=== PATIENT | female | born 1960 | race Caucasian/White ===

== ENCOUNTER 2022-12-18 13:34 | Day surgery (SDC) | payer MEDICARE, SELFPAY ==
--- NOTE | 2022-12-18 | IMM_PTH ---
PATIENT: RG LAWRENCE LOC: EN U#:[id number] AGE/SX: 62/F ROOM: RE12/18/[address]: Dr. Eron Arboleda DO : 1960 BED: DIS: 12/18/2022 SPEC #: [id number] RECD: 12/20/22 06:39 STATUS: RAMBO RICHAR #: [id number] LUCA: 12/18/22 00:[address]: Eron Arboleda DEPT: IMMUNOHISTOCHEMISTRY RECD BY: Prince Page Tissues: B - Gastric mucous membrane Procedures: H Pylori (initial) PHYSICIAN & INSTITUTION [place] [id number] SPECIMEN INFORMATION: Tissue Source: Antrum Clinical Info: Abdominal pain, diarrhea Specimen Number: [id number] CPT code: 32641 METHODOLOGY: Deparaffinized sections of prefer/formalin-fixed tissue or PAP/DQ stained slides are incubated with monoclonal/polyclonal antibodies/oligonucleotide probes. Localization is made via biotin free immunoperoxidase method. Appropriate controls are performed and reacted as expected. Results on target cell population are indicated in the following table: RESULTS: ANTIBODY / CLONE RESULT H Pylori (polyclonal) negative These tests were developed and their performance characteristics determined by [facility]. They may not have been cleared or approved by the U.S. Food and Drug Administration. The FDA has determined that such clearance or approval is not necessary. The above immunohistochemical/dualISH markers are ordered and reviewed by the Pathologist. INTERPRETATION: B. Antrum, biopsy: Negative for Helicobacter pylori organisms. SJ:geoff 12/20/22
--- NOTE | 2022-12-18 | GASB_PTH ---
PATIENT: RG LAWRENCE LOC: EN U#:[id number] AGE/SX: 62/F ROOM: RE12/18/[address]: Dr. Eron Arboleda DO : 1960 BED: DIS: 12/18/2022 SPEC #: [id number] RECD: 12/18/22 19:01 STATUS: RAMBO MCQUEEN #: [id number] LUCA: 12/18/22 00:[address]: Eron Arboleda DEPT: SURGICAL PATHOLOGY RECD BY: Nilay Courtney Tissues: A - Duodenum, NOS B - Gastric mucous membrane C - Esophageal mucous membrane D - Gastric mucous membrane E - Ileum, NOS G - COLON BIOPSY Procedures: Special Stain Group I Surgery Specimen Level IV GMS Stain (control) HEADER OPERATION: Colonoscopy with polypectomy, EGD with biopsies PRE-OP DIAGNOSIS: Abdominal pain, diarrhea TISSUE SUBMITTED: A. Duodenum, B. Antrum, C. Random esophagus, D. Hepatic flexure, E. Terminal ileum, F. Random colon MICROSCOPIC DIAGNOSIS A. Duodenum, biopsy: Fragments of duodenal mucosa, no pathologic diagnosis. B. Antrum, biopsy: Mild gastritis. See microscopic description and comment. C. Random esophagus, biopsy: Fragments of squamous mucosa with focal mild acute and chronic inflammation. See comment. D. Hepatic flexure, biopsy: Fragments of tubular adenoma. Fragments of fecal material. E. Terminal ileum, biopsy: Fragments of small intestinal mucosa, no pathologic diagnosis. F. Colon, random biopsy: Fragments of colonic mucosa, no pathologic diagnosis. SJ: 12/20/2022 COMMENT B. The results of immunohistochemistry for Helicobacter pylori will be reported separately ([id number]). C. Special stain for fungi is positive for organisms (pseudohyphae) consistent with Caitlin species; matched control is appropriate. H&E slides show more organisms as compared fungal stained slides. These may represent contaminants from mouth. Correlation with clinical, endoscopic findings and appropriate follow up are necessary. Case has been reviewed in consultation with Dr. Stevenson who concurs with the above diagnosis. IDC:AM MICROSCOPIC DESCRIPTION Slides are reviewed. The specimen shows fragments of gastric mucosa with chronic inflammatory cell infiltrates in the lamina propria consisting of lymphocytes and plasma cells, consistent with mild chronic gastritis. GROSS DESCRIPTION A. Received is one container labeled with the patient name and designated duodenum. The specimen consists of two irregular fragments of light bennett soft tissue that in aggregate measure 0.6 x 0.3 x 0.1 cm. The specimen is totally submitted in one cassette. B. Received is one container labeled with the patient name and designated antrum. The specimen consists of two irregular fragments of light bennett soft tissue that in aggregate measure 0.6 x 0.3 x 0.1 cm. The specimen is totally submitted in one cassette. C. Received is one container labeled with the patient name and designated random esophagus. The specimen consists of multiple irregular fragments of light bennett soft tissue that in aggregate measure 1 x 0.3 x 0.1 cm. The specimen is totally submitted in one cassette. D. Received is one container labeled with the patient name and designated hepatic flexure polyp. The specimen consists of multiple irregular fragments of light bennett soft tissue that in aggregate measure 2.5 x 1 x 0.1 cm. Mixed fecal material noted. The specimen is totally submitted in one cassette. E. Received is one container labeled with the patient name and designated terminal ileum. The specimen consists of two irregular fragments of light bennett soft tissue that in aggregate measure 0.4 x 0.3 x 0.1 cm. The specimen is totally submitted in one cassette. F. Received is one container labeled with the patient name and designated random colon. The specimen consists of multiple irregular fragments of light bennett soft tissue that in aggregate measure 0.1 x 0.5 x 0.1 cm. The specimen is totally submitted in one cassette. / SJ:cc 12/19/22 TC: 1 CPT: 47146 x6, 00378
[2022-12-18 14:03] VITALS: BP 122/78; PULSE 55; RESP 18; TEMP 36.2; O2SAT 97; BMI 49.6
[2022-12-18] MEDS: Lactated Ringers 1,000 ML 15 ML IV (14:13)
--- NOTE | 2022-12-18 15:56 | PCM.HP.BLA ---
History and Physical Date of Admission: 12/18/22 graeme reflux, diarrhea Details: RG LAWRENCE, is a 62 F new patient who presents to the office today for acid reflux, IBS with diarrhea. Has dysphagia, better since she chews up food better and eats slowly, but still intermittent difficulty swallowing. Hx acid reflux. Within the past 3 mos she has started apple cider vinegar gummies, helps with acid reflux, so she has stopped omeprazole and famotidine. Abd pain LLQ after eating. If she doesn't take loperamide then she had postprandial urgent diarrhea w/ accidents. But can't take loperamide daily or she gets constipated. No melena or hematochezia. no prior EGD had colonoscopy hx cholecystectomy Very focused on multiple health issues and resulting depression Exam Const General: cooperative Nutritional Appearance: obese Orientation: alert, awake and oriented x3 Eyes Sclera: sclerae normal Resp Effort & Inspection: normal respiratory effort GI Inspection: obesity Palpation: soft, no hepatosplenomegaly, mass and tender in the LLQ Psych Mood: congruent mood Assessment and Plan Assessment and Plan (1) Diarrhea: Status: Chronic Plan: 62 yr old female with dysphagia, acid reflux, diarrhea, postprandial LLQ pain. Will have her try colestipol 1-2 g at HS. Will schedule EGD and colonoscopy, office f/u 2 wks later. (2) GERD (gastroesophageal reflux disease): Status: Chronic Plan: Now controlled with apple cider vinegar gummies. She stopped H2 fer and PPI. EGD to eval for stricture/stenosis, Moser's. (3) Dysphagia: Status: Chronic Plan: as above Medications: New colestipol 1-2 tablets orally at bedtime 60 tabs 5RF diarrhea I have examined the patient and the H&P has been reviewed. There are no clinical changes since date of exam.
[2022-12-18 16:40] VITALS: BP 102/50; BP 122/78; PULSE 65; RESP 16; TEMP 36.2; O2SAT 97
[2022-12-18 16:45] VITALS: BP 122/78; BP 97/54; PULSE 61; RESP 16; O2SAT 98
--- NOTE | 2022-12-18 16:47 | OP.EGD_ITS ---
Patient Name: Sue Dickens Procedure Date: 12/18/2022 3:45 PM Date of : 1960 Age: 62 Procedure: Upper GI endoscopy Indications: Epigastric abdominal pain, Dysphagia Providers: Eron Arboleda DO Medicines: Monitored Anesthesia Care Patient Profile: This is a 62 year old female. Refer to note in patient chart for documentation of history and physical. Patient has symptoms of chronic abdominal cramping, chronic abdominal distention and chronic epigastric abdominal pain. Complications: No immediate complications. Procedure: Pre-Anesthesia Assessment: - Prior to the procedure, a History and Physical was performed, and patient medications and allergies were reviewed. The patient is competent. The risks and benefits of the procedure and the sedation options and risks were discussed with the patient. All questions were answered and informed consent was obtained. Patient identification and proposed procedure were verified by the physician. Mental Status Examination: normal. CV Examination: normal. Prophylactic Antibiotics: The patient does not require prophylactic antibiotics. Prior Anticoagulants: The patient has taken no previous anticoagulant or antiplatelet agents. After reviewing the risks and benefits, the patient was deemed in satisfactory condition to undergo the procedure. The anesthesia plan was to use minimal sedation / analgesia (anxiolysis). Immediately prior to administration of medications, the patient was re-assessed for adequacy to receive sedatives. The heart rate, respiratory rate, oxygen saturations, blood pressure, adequacy of pulmonary ventilation, and response to care were monitored throughout the procedure. The physical status of the patient was re-assessed after the procedure. After obtaining informed consent, the endoscope was passed under direct vision. Throughout the procedure, the patient's blood pressure, pulse, and oxygen saturations were monitored continuously. The colonoscope was introduced through the mouth, and advanced to the second part of duodenum. The upper GI endoscopy was accomplished without difficulty. The patient tolerated the procedure well. Scope In: 4:01:24 PM Scope Out: 4:08:07 PM Total Procedure Duration Time 0 hours 6 minutes 43 seconds Findings: Mucosal changes including ringed esophagus were found in the upper third of the esophagus, in the middle third of the esophagus and in the lower third of the esophagus. Biopsies were obtained from the proximal and distal esophagus with cold forceps for histology of suspected eosinophilic esophagitis. Verification of patient identification for the specimen was done. Estimated blood loss was minimal. Patchy mildly erythematous mucosa without bleeding was found in the gastric body. Localized mildly erythematous mucosa without active bleeding and with no stigmata of bleeding was found in the duodenal bulb. A moderate Schatzki ring was found in the lower third of the esophagus. A guidewire was placed and the scope was withdrawn. Dilation was performed with a Savary dilator with no resistance at 45 Fr. The dilation site was examined and showed moderate improvement in luminal narrowing. Estimated blood loss was minimal. Impression: - Esophageal mucosal changes consistent with eosinophilic esophagitis. Biopsied. - Erythematous mucosa in the gastric body. - Erythematous duodenopathy. Recommendation: - Discharge patient to home. - Resume previous diet. - Continue present medications. - Await pathology results. - Repeat upper endoscopy for surveillance. -Pantoprazole 40 mg p.o. twice daily for the eosinophilic esophagitis -Amitriptyline 25 mg p.o. at night for bloating and abdominal pain -Colestipol at night for diarrhea Procedure Code(s): --- Professional --- 65761, Esophagogastroduodenoscopy, flexible, transoral; with insertion of guide wire followed by passage of dilator(s) through esophagus over guide wire 00910, 59,51, Esophagogastroduodenoscopy, flexible, transoral; with biopsy, single or multiple CPT copyright 2017 [employer]. All rights reserved. The codes documented in this report are preliminary and upon cosmetology professor review may be revised to meet current compliance requirements. Eron Arboleda DO 12/18/2022 4:46:41 PM This report has been signed electronically. Number of Addenda: 0 Note Initiated On: 12/18/2022 3:45 PM
[2022-12-18 16:50] VITALS: BP 122/78; BP 99/59; PULSE 60; RESP 16; O2SAT 97
--- NOTE | 2022-12-18 16:54 | OP.COLON_ITS ---
Patient Name: Sue Dickens Procedure Date: 12/18/2022 4:08 PM Date of : 1960 Age: 62 Procedure: Colonoscopy Indications: Clinically significant diarrhea of unexplained origin Providers: Eron Arboleda DO Medicines: Monitored Anesthesia Care Patient Profile: This is a 62 year old female. Refer to note in patient chart for documentation of history and physical. Patient has symptoms of chronic abdominal cramping, chronic abdominal distention and chronic epigastric abdominal pain. Last Colonoscopy: date unknown. Unable to locate last colonoscopy report. Complications: No immediate complications. Procedure: Pre-Anesthesia Assessment: - Prior to the procedure, a History and Physical was performed, and patient medications and allergies were reviewed. The patient is competent. The risks and benefits of the procedure and the sedation options and risks were discussed with the patient. All questions were answered and informed consent was obtained. Patient identification and proposed procedure were verified by the physician. Mental Status Examination: normal. CV Examination: normal. Prophylactic Antibiotics: The patient does not require prophylactic antibiotics. Prior Anticoagulants: The patient has taken no previous anticoagulant or antiplatelet agents. After reviewing the risks and benefits, the patient was deemed in satisfactory condition to undergo the procedure. The anesthesia plan was to use minimal sedation / analgesia (anxiolysis). Immediately prior to administration of medications, the patient was re-assessed for adequacy to receive sedatives. The heart rate, respiratory rate, oxygen saturations, blood pressure, adequacy of pulmonary ventilation, and response to care were monitored throughout the procedure. The physical status of the patient was re-assessed after the procedure. After I obtained informed consent, the scope was passed under direct vision. Throughout the procedure, the patient's blood pressure, pulse, and oxygen saturations were monitored continuously. The colonoscope was introduced through the anus and advanced to the terminal ileum. The colonoscopy was performed without difficulty. The patient tolerated the procedure well. The quality of the bowel preparation was fair. Scope In: 4:14:18 PM Scope Withdrawal Time 0 hours 12 minutes 0 seconds Scope Out: 4:34:08 PM Total Procedure Duration Time 0 hours 19 minutes 50 seconds Findings: The perianal and digital rectal examinations were normal. A few small-mouthed diverticula were found in the recto-sigmoid colon and sigmoid colon. An area of mildly congested mucosa was found in the entire colon. Biopsies were taken with a cold forceps for histology. Verification of patient identification for the specimen was done. Estimated blood loss was minimal. Three sessile polyps were found in the hepatic flexure. The polyps were 1 to 2 mm in size. These polyps were removed with a hot snare. Resection and retrieval were complete. Verification of patient identification for the specimen was done. Estimated blood loss was minimal. Stool was found in the rectum, in the sigmoid colon, in the transverse colon and in the cecum. The terminal ileum appeared normal. Biopsies were taken with a cold forceps for histology. Verification of patient identification for the specimen was done. Estimated blood loss was minimal. Impression: - Preparation of the colon was fair. - Diverticulosis in the recto-sigmoid colon and in the sigmoid colon. - Congested mucosa in the entire examined colon. Biopsied. - Three 1 to 2 mm polyps at the hepatic flexure, removed with a hot snare. Resected and retrieved. - Stool in the rectum, in the sigmoid colon, in the transverse colon and in the cecum. - The examined portion of the ileum was normal. Biopsied. Recommendation: - Discharge patient to home. - Resume previous diet. - Continue present medications. - Await pathology results. - Repeat colonoscopy in 3 years for surveillance. Procedure Code(s): --- Professional --- 91343, Colonoscopy, flexible; with removal of tumor(s), polyp(s), or other lesion(s) by snare technique 99308, 59, Colonoscopy, flexible; with biopsy, single or multiple CPT copyright 2017 [employer]. All rights reserved. The codes documented in this report are preliminary and upon vice president of engineering review may be revised to meet current compliance requirements. Eron Arboleda DO 12/18/2022 4:53:39 PM This report has been signed electronically. Number of Addenda: 0 Note Initiated On: 12/18/2022 4:08 PM
[2022-12-18 16:55] VITALS: BP 119/55; BP 122/78; PULSE 58; RESP 16; TEMP 36.1; O2SAT 97
[2022-12-18 17:08] VITALS: BP 122/78
== END 2022-12-18 17:35 | disposition home or self-care (01) ==
LOC: EN 13:37 → AC 13:38
PROVIDERS: Referring Provider Internal Medicine Gastroenterology; Visit Provider Internal Medicine Gastroenterology
PROC: 0DJD8ZZ Inspection of Lower Intestinal Tract, Via Natural or Artificial Opening Endoscopic (ICD-10-PCS; CPT 45378; principal; 2022-12-18 14:40)
DX: K22.2 Esophageal obstruction (principal); J44.9 Chronic obstructive pulmonary disease, unspecified; Z68.42 Body mass index [BMI] 45.0-49.9, adult; K20.0 Eosinophilic esophagitis; K29.70 Gastritis, unspecified, without bleeding; D12.3 Benign neoplasm of transverse colon; K57.30 Diverticulosis of large intestine without perforation or abscess without bleeding; K52.9 Noninfective gastroenteritis and colitis, unspecified; I10 Essential (primary) hypertension; E05.90 Thyrotoxicosis, unspecified without thyrotoxic crisis or storm; F32.A Depression, unspecified; F41.9 Anxiety disorder, unspecified; F17.200 Nicotine dependence, unspecified, uncomplicated; E66.9 Obesity, unspecified; Z91.199 Patient's noncompliance with other medical treatment and regimen due to unspecified reason; Z90.49 Acquired absence of other specified parts of digestive tract; Z79.82 Long term (current) use of aspirin; Z79.899 Other long term (current) drug therapy
CPT/HCPCS: 43239; 43248; 45380; 45385; 88305; 88312; 88342; J7120

== ENCOUNTER → 2023-03-23 | Outpatient (CLI) | payer MEDICARE, SELFPAY ==
--- NOTE | 2023-03-23 09:38 | CT_ITS ---
EXAM: CT CHEST, LUNG CANCER SCREENING WITHOUT INTRAVENOUS CONTRAST CLINICAL INDICATION: TOBACCO USE TECHNIQUE: Helically acquired images were obtained of the chest without intravenous contrast using low dose (LDCT) lung cancer screening protocol. This CT exam was performed using one or more of the following dose reduction techniques: automated exposure control, adjustment of the mA and/or kV according to patient size, and/or use of iterative reconstruction technique. COMPARISON: No relevant prior studies available. FINDINGS: LUNGS AND PLEURAL SPACES: There are mild groundglass opacities in the right upper lobe. No mass. No pleural effusion or thickening. No pneumothorax. HEART: Unremarkable. Heart size is normal. No pericardial effusion. No significant coronary artery calcifications. MEDIASTINUM: Unremarkable. No mediastinal or hilar adenopathy. Esophagus is unremarkable. No hiatal hernia. THYROID: Unremarkable. No thyroid lesions. BONES/JOINTS: Unremarkable. No suspicious lytic or blastic abnormality. VASCULATURE: Unremarkable. Thoracic aorta is non-dilated. LYMPH NODES: Unremarkable. No enlarged lymph nodes. CT/Low Dose CT Lung Screening IMPRESSION: Minimal groundglass opacities in the right upper lobe Lung-RADS score: 2 - Benign Appearance or Behavior. Recommend continued annual screening with a low-dose CT (LDCT) in 12 months. Electronically Signed: Gabo Navarro MD at 23:58 EDT ,
== END | disposition home or self-care (01) ==
LOC: CT 09:35
PROVIDERS: Visit Provider Internal Medicine Pulmonary Disease
DX: Z12.2 Encounter for screening for malignant neoplasm of respiratory organs (principal); Z87.891 Personal history of nicotine dependence
CPT/HCPCS: 71271

== ENCOUNTER → 2023-04-15 | Outpatient (CLI) | payer MEDICARE, SELFPAY ==
[2023-04-18 00:07] LABS: Pancreatic Elastase, Fecal 274 (>200)
[2023-04-20 00:07] LABS: Calprotectin, Stool 166 ug/g (0-120)
== END | disposition home or self-care (01) ==
PROVIDERS: Referring Provider Internal Medicine Gastroenterology; Visit Provider Internal Medicine Gastroenterology
DX: K58.9 Irritable bowel syndrome, unspecified (principal); K59.1 Functional diarrhea
CPT/HCPCS: 82653; 83630; 83993; 87177; 87209; 87329